=== PATIENT | male | born 1995 | race Caucasian/White ===

== ENCOUNTER → 2024-02-04 | Outpatient (CLI) | payer OTHER, SELFPAY ==
--- NOTE | 2024-02-04 18:39 | CT_ITS ---
EXAM: CT MAXILLOFACIAL WITHOUT INTRAVENOUS CONTRAST CLINICAL INDICATION: NASAL POLYP TECHNIQUE: Helically acquired images were obtained of the face without intravenous contrast. This CT exam was performed using one or more of the following dose reduction techniques: automated exposure control, adjustment of the mA and/or kV according to patient size, and/or use of iterative reconstruction technique. COMPARISON: No relevant prior studies available. FINDINGS: BONES/JOINTS: Mild bilateral TMJ arthrosis and mild degenerative changes in the cervical line. No displaced fracture. No discrete lytic or blastic abnormalities. SOFT TISSUES: No significant abnormality. No free maxillary preferential fat is clear. No focal subcutaneous swelling. No discrete fluid collections. ORBITS: No acute findings. No orbital inflammation. SINUSES: Maxillary sinuses: Diffuse mild to moderate mucosal thickening in the maxillary sinuses. At least transient obstruction of the bilateral ostiomeatal units. Frontal sinuses: Mucosal thickening in the bilateral frontal sinuses extending through the frontal recesses which are at least transiently obstructed. Ethmoid sinuses: Diffuse anterior and posterior ethmoid sinus opacities. Sphenoid sinuses: Diffuse mucosal thickening with some polypoid features in the bilateral sphenoid sinuses. The sphenoethmoidal recesses are opacified. Diffuse osteitis on the lung kim of the bilateral maxillary and sphenoid sinuses indicating chronic disease. MASTOID AIR CELLS: Normal as visualized. Clear. DENTAL: Right maxillary medial incisor expansile periapical lucency.. NASAL CAVITY/SEPTUM: Mucosal thickening with polypoid features throughout the nasal cavity. Right middle turbinate richar bullosa. Leftward nasal septal deviation and spurring. CT/Sinus/Facial Bone IMPRESSION: Diffuse sinonasal disease with likely acute on chronic features. Nasal septal deviation and spurring. Extensive sinus apical pathway obstruction. Some polypoid features are identified. Electronically Signed: Justin Modi DO at 22:15 EDT ,
== END | disposition home or self-care (01) ==
PROVIDERS: PCP Physician Assistant; Referring Provider Otolaryngology; Visit Provider Otolaryngology
DX: J33.0 Polyp of nasal cavity (principal); J32.8 Other chronic sinusitis
CPT/HCPCS: 70486

== ENCOUNTER 2024-04-24 07:16 | Day surgery (SDC) | payer OTHER, SELFPAY ==
[2024-04-24] VITALS (10 sets, daily range): BP systolic 123–149; BP diastolic 73–87; PULSE 65–139; RESP 16; TEMP 36.6–36.7; O2SAT 95–100; BMI 23.6
--- NOTE | 2024-04-24 07:30 | PRE.ANES_ITS ---
ASA Classification* ASA Classification ASA Classification: 2 Assessment & Plan Anesthesia* Anesthesia Assessment Anesthesia Assessment: Discussed sedation and/or anesthesia options, risks, benefits, and alternatives with patient/parents/legal guardian/POA. Questions invited. The patient/parents/legal guardian/POA seems to understand and agrees to proceed with anesthesia plan. Reviewed the physical assessment, medical history, allergy history and patient home medications list prior to surgery/procedure/anesthetic and documented any changes. Performed airway and anesthesia risk assessments. Anesthesia Type Anesthesia Type: General Anesthesia Focused Assessment* Airway Assessment Mouth opens: >3 cm Mallampati Score: II Focused Labs Anesthesia Preop lab: CBC WBC 8.0 k/mm3 (4.4-11.0) 01/04/13 14:02 RBC 4.90 M/mm3 (4.6-6.2) 01/04/13 14:02 Hgb 15.3 g/dl (13.0-16.5) 01/04/13 14:02 Hct 44.1 % (40-54) 01/04/13 14:02 Plt Count 246 K/mm3 (150-450) 01/04/13 14:02 CHEMISTRY Potassium 4.4 mmol/L (3.5-5.1) 01/04/13 14:02 Sodium 141 mmol/L (136-145) 01/04/13 14:02 BUN 13 mg/dL (7-18) 01/04/13 14:02 Creatinine 0.8 mg/dL (0.8-1.3) 01/04/13 14:02 Glucose 69 mg/dL (70-110) L 01/04/13 14:02 COAG Pre-Assessment Diagnosis/Proposed Procedure Planned Operative Procedure(s): Septoplasty, Bilateral Total Ethmoidectomy, B ilateral Maxillary Antrostomy, Right partial middle turbinectomy with navigation Anesthesia 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 When Was Last Pacemaker Check QUESTION #4 FULL TEXT: You/Your Family Experience fever (hyperthermia) with Anesthesia Last Oral Intake Last Oral intake: Last Oral Intake NPO since Meds taken in AM with sips of water? 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 farm manager Female No 04/18/24 09:27 HX of Motion Sickness No 04/18/24 09:27 HX of N/V After Surgery No 04/18/24 09:27 Non-Smoker Yes 04/18/24 09:27 Duration of Surgery greater Yes 04/18/24 09:27 than 60 minutes Number of Risk Factors 2 04/18/24 09:27 PONV Score Moderate Risk 04/18/24 09:27 Respiratory Assessment Respiratory Assessment - grain oilseed or pasture farm manager: Respiratory Tract Infection Hx - grain oilseed or pasture farm manager Hx Respiratory Tract Infection No 04/18/24 09:27 STOP Sleep Apnea STOP Sleep Apnea - grain oilseed or pasture farm manager: STOP Sleep Apnea - grain oilseed or pasture farm manager Hx Hypertension No 04/18/24 09:27 Hx Sleep Apnea No 04/18/24 09:27 CPAP BIPAP Do you snore loudly (louder No 04/18/24 09:27 than talking or can be heard Do you often feel tired/ No 04/18/24 09:27 fatigued/ sleepy during daytime? Has anyone observed you stop No 04/18/24 09:27 breathing during sleep? STOP Results Negative 04/18/24 09:27 QUESTION #5 FULL TEXT : Do you snore loudly (louder than talking or can be heard through closed doors)? 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 Specify any problems Hx of Preganancy in last 3 N/A 04/18/24 09:27 Months Nurse Filling Out Transfusion NBUCHER 04/18/24 09:27 & Questions: Date: 04/18/24 04/18/24 09:27 Time: 09:29 04/18/24 09:27 Patient unable to answer at this time (ie. confused, unrespo /Reproduction History /Reproductive History - grain oilseed or pasture farm manager: /Reproductive Hx- grain oilseed or pasture farm manager Hx Now No 04/18/24 09:27 Gestational Age (in weeks): EDC: Hx Hx Para Hx Section SAB No 04/18/24 09:27 Active Medications Active Medications: Current Medications Generic Name Dose Route Start Last Admin Trade Name Freq PRN Reason Stop Dose Admin Lactated Ringer's 1,000 mls @ 15 mls/hr 04/24/24 07:30 IV .Q48H RAMIRO Oxymetazoline HCl 3 spray 04/24/24 09:25 Oxymetazoline 0.05% [address] [place].Btl NASAL 04/24/24 09:26 PREOP ONE [facility] Medical History Wears glasses History of stress test Asthma Non-smoker Home Medications ?Medication ?Instructions ?Recorded ?Last Taken ?Type cetirizine 5 mg-pseudoephedrine ER 1 tab PO BID 04/18/24 Unknown History 120 mg tablet,extended release,12hr (Allergy Relief-D (cetirizine)) fluticasone propionate 50 1 spray intranasal DAILY 04/18/24 Unknown History mcg/actuation nasal spray,suspension montelukast 10 mg tablet 10 mg PO DAILY 04/18/24 Unknown History Allergy/AdvReac Type Severity Reaction Status Date / Time Penicillins (PCN) Allergy Severe Hives Verified 04/18/24 09:26 Surgical History History of colonoscopy History of tonsillectomy and adenoidectomy Social History Smoking Status: Never smoker Review of Systems (Anesthesia) ROS Narrative System reviewed and no additional complaints, except as documented.
[2024-04-24] MEDS: Lactated Ringers 1,000 ML 15 ML IV (07:47)
[2024-04-24] MEDS: Oxymetazoline 0.05% 1 SPRAY SPRAY.BTL 3 SPRAY NASAL (07:48)
--- NOTE | 2024-04-24 08:45 | SEP_PTH ---
PATIENT: SANJUANITA MONTANA LOC: [facility] [place] U#:[id number] AGE/SX: 29/M ROOM: RE04/24/[address]: Dr. Odin Jovel MD : 1995 BED: DIS: 04/24/2024 SPEC #: [id number] RECD: 04/24/24 13:35 STATUS: ALDO JODI #: [id number] ROXANNA: 04/24/24 08:[address]: Odin Jovel DEPT: SURGICAL PATHOLOGY RECD BY: Kyle Gant ENTERED: 04/24/24 14:08 SP TYPE: SEPTUM OTHR DR: JENN Crabtree Tissues: A - Ethmoid sinus, NOS B - Ethmoid sinus, NOS C - Nasal septum, NOS Procedures: Decalcification bone/plaque Surgery Specimen Level III Surgery Specimen Level IV HEADER OPERATION: Septoplasty, bilateral total ethmoidectomy PRE-OP DIAGNOSIS: Chronic sinusitis involving more than one sinus, acquired deflection of nasal septum, nasal polyp TISSUE SUBMITTED: A- Right sinus contents, B- Left sinus contents, C- Septum MICROSCOPIC DIAGNOSIS A. Right sinus contents: Fragments of respiratory mucosa with chronic inflammation and bone. B. Left sinus contents: Fragments of respiratory mucosa with chronic inflammation and bone. C. Septum: Fragments of cartilage and bone, clinically deflection of nasal septum. JUANITA. 04/27/2024 MICROSCOPIC DESCRIPTION Slides are reviewed. GROSS DESCRIPTION A. Received in fixative is one container labeled with the patient's name and designated Right nasal contents. The specimen consists of multiple fragments of moore soft tissue mixed with fragments of bone measuring in aggregate 3.0 x 2.5 x 0.1cm. The entire specimen is submitted in one cassette after decalcification. B. Received in fixative is one container labeled with the patient's name and designated Left nasal contents. The specimen consists of multiple fragments of hemorrhagic soft tissue mixed with fragments of bone measuring in aggregate 5.0 x 3.0 x 0.3cm. The entire specimen is submitted in two cassettes after decalcification. C. Received in fixative is one container labeled with the patient's name and designated Septum. The specimen consists of multiple fragments of cartilage and bone measuring in aggregate 2.5 x 2.5 x 0.2cm. The entire specimen is submitted in one cassette after decalcification. 04/24/2024 TC:3 CPT:09167v6,[id number]
[2024-04-24] MEDS: Lidocaine 1% /Epi 1:100 (50ml) 50 ML VIAL (08:48)
--- NOTE | 2024-04-24 09:07 | PCM.DC.SUM ---
Providers Primary Care Physician: JENN Crabtree Reason For Visit: Septoplasty, Bilateral Total Ethmoidectomy, Bilate Medications at Discharge Home Medications cetirizine 5 mg-pseudoephedrine ER 120 mg tablet,extended release,12hr (Allergy Relief-D (cetirizine)) 1 tab PO BID 04/18/24 fluticasone propionate 50 mcg/actuation nasal spray,suspension 1 spray intranasal DAILY 04/18/24 montelukast 10 mg tablet 10 mg PO DAILY 04/18/24 Weight / BMI Weight Weight: 81 kg Body Mass Index (BMI) 23.6 D/C Instructions Discharge Diet: No restrictions Additional Activity Instructions: No nose blowing Additional Instructions: Start irrigation 4x/day on 04/25/24. Please Follow Up With: Odin Jovel MD When: 8 days. Meaningful Use Info Meaningful Use Meaningful Use Diagnoses (Choose all that apply): None applicable Ischemic Stroke Statin Dosing Therapy Reference: STATIN DOSE THERAPY REFERENCE: * Patients > 75 years receive moderate or high dose statin therapy. * Patients 75 years or YOUNGER should receive HIGH intensity statin dose unless contraindicated. You will be required to document reason for non-treatment if statin daily dose does not meet guidelines. HIGH DOSE STATIN THERAPY DAILY Atorvastatin > than or = to 40 mg Rosuvastatin > than or = to 20 mg Amlodipine + Atorvastatin > than or = to 2.5/40 mg Ezetimibe + Simvastatin 10/80 mg Simvastatin 80mg Discharge Plan Admission Attending Provider: Odin Jovel Primary Care Provider: Mj Valdez Instructions Print Language: Upper Sorbian Discharge Orders/Prescriptions Prescriptions: No Action montelukast 10 mg tablet 10 mg PO DAILY fluticasone propionate 50 mcg/actuation spray,suspension 1 spray INTRANASAL DAILY cetirizine-pseudoephedrine [Allergy Relief-D (cetirizine)] 5-120 mg tablet extended release 12 hr 1 tab PO BID Referrals / Follow Up: Mj Valdez PA [Primary Care Provider] - Disposition Disposition (needs filled in before D/C Order can be placed): Home, Self Care
--- NOTE | 2024-04-24 09:09 | PCM.OPRPT ---
Report of Operation Date of Procedure: 04/24/24 Pre-Operative Diagnosis: chronic sinusitis with polyposis deviated nasal septum right rihcar bullosa Post-Operative Diagnosis: same Surgery/Procedure Performed:: Bilateral total ethmoidectomy Bilateral maxillary antrostomy Septoplasty Right partial middle turbinectomy Surgeon: Odin Jovel Type of Anesthesia: General Anesthesiologist: Shukri Rodgers Estimated Blood Loss (mL): minimal Description of Procedure: The patient was taken to the operating room on 04/24/2024. The patient was placed in the supine position on the operating table. The patient was given sufficient general endotracheal anesthesia. The head of bed was elevated 30 degrees. The navigation system was placed and verified per protocol and found to be accurate. 0 and 30 degrees rigid nasal endoscopes were used throughout the entire case. The middle turbinate uncinate process and polyps were injected with 1% lidocaine with epinephrine bilaterally. The right middle turbinate was medialized with a [place] elevator. Polyp was removed from the middle meatus using a sinus shaver. He had a large right middle turbinate richar bullosa. I elected to resect the lateral wall to provide better access to the sinonasal cavity. I opened the richar bullosa with a [place]. I then carefully resected the lateral wall with Addison-Cut forceps and a microdebrider. Polyp was found within the richar bullosa. This was removed with a sinus shaver. A ball-tipped sinus seeker was placed into the patient's maxillary sinus. The maxillary antrostomy was created with a backbiter. The uncinate process was taken down using a microdebrider. Next, the ethmoid bulla was opened with a small curette. Anterior and posterior ethmoidectomy were then carried out using curette, sinus shaver and 45 degree [place] Ivanna forceps. Ethmoid cells were verified for relation to the skull base and orbit prior to being entered with the navigation system. I then placed Afrin pledgets into the sinonasal cavity. A right hemitransfixion incision was made with a 15 blade. The mucoperichondrium was elevated off of the left-hand side of the septum with a [place] elevator. An anterior and posterior tunnel were created in this fashion. The bony cartilaginous junction was with a [place] elevator. A posterior tunnel was created on the right side developed by elevating the mucoperichondrial with a [place]. The deviated portions of bony septum removed using open Seb-Bryan forceps. Next I established a plane on the right-hand side of the quadrangular cartilage. The deviated portions of the quandrangular cartilage was removed. Hemostasis was achieved with afrin pledgets. The pledgets were then removed. Andrew was applied to the septum. The hemitransfixion incision was closed with 4-0 chromic. Next attention was turned to the left side. The middle turbinate was medialized with a [place] elevator. A large polyp was removed from the middle meatus using a sinus shaver. The maxillary antrostomy was created with a backbiter. The uncinate process was taken down using a sinus shaver. The ethmoid bulla was opened with a small curette. Anterior and posterior ethmoidectomy were then carried out using a sinus shaver curette and [place] Ivanna forceps. Ethmoid cells were verified for relation to the skull base and orbit prior to being entered with the navigation system. Hemostasis was then achieved using Afrin pledgets. The pledgets were then removed bilaterally and Andrew powder was applied bilaterally for absolute hemostasis. Chambers nasal splints were applied to each side of the septum and sewn through and through with 3-0 silk.The procedure was then terminated. The patient was then awoken and brought to the recovery room in stable condition blood loss 30 cc, replacement none. Sponge, needle, instrument count were correct at the end of the procedure.
[2024-04-24] MEDS: BACITRACIN/POLYMYXIN B 15 GM Tube 1 APPLIC (11:03)
--- NOTE | 2024-04-24 11:53 | PCM.POST.ANE ---
Anesthesia: Postop Eval I Current Vital Signs Temperature: 97.8 F Pulse Rate: 119 Blood Pressure: 133/85 Respiratory Rate: 16 Pulse Ox: 95 Oxygen Delivery Method: Room Air Assessment Airway patent: Yes Spontaneous unlabored respirations: Yes Mental status: Awake and Calm nausea: No Vomiting: No Anesthesia Complication: No Fluid Hydration Crystalloid volume administer (ml): 700 Total IV fluid infused: 700 Progress Note Anesthesia document: Postop Eval 1 completed: Yes
--- NOTE | 2024-04-24 13:17 | PCM.POSTANE2 ---
Anesthesia Postop Eval I Sum Postop Eval Completion status Anesthesia document: Postop Eval 1 completed: Yes Anesthesia Postop Eval I Summary Anesthesia Postop Eval I Summary: Anesthesia Postop Eval I: Assessment Summary Airway patent Yes 04/24/24 11:55 Spontaneous unlabored Yes 04/24/24 11:55 respirations Mental status Awake,Calm 04/24/24 11:55 nausea No 04/24/24 11:55 Vomiting No 04/24/24 11:55 Anesthesia Postop Eval I: Fluid Summary Crystalloid volume administer 700 04/24/24 11:55 (ml) Colloids volume administered ( ml) Blood Product volume administered (ml) Total IV fluid infused 700 04/24/24 11:55 Anesthesia Postop Eval I: Summary Notes Anesthesia Complication No 04/24/24 11:55 Anesthesia Complication Comment: Post-operative progress note Anesthesia: Postop Eval II Evaluation Mental status: Awake Pain Level: 0 nausea: No Vomiting: No
[2024-04-24] MEDS: HYDROcodone Bitartrate/Apap 5/325 Tablet PO (14:43)
== END 2024-04-24 14:55 | disposition home or self-care (01) ==
LOC: SDC 07:18 → AC 07:19
PROVIDERS: PCP Physician Assistant; Referring Provider Otolaryngology; Visit Provider Otolaryngology
PROC: (CPT 30520; principal; 2024-04-24 08:15)
DX: J34.2 Deviated nasal septum (principal); J32.8 Other chronic sinusitis; J33.9 Nasal polyp, unspecified; J45.909 Unspecified asthma, uncomplicated
CPT/HCPCS: 30520; 31256; 31255; 30110; 00160; 88304; 88305; 88311; J7120; A4216; J2405